=== PATIENT | female | born 1945 | race Caucasian/White ===

== ENCOUNTER → 2017-04-22 | Outpatient (CLI) | payer OTHER ==
[~2017-04-22] MED LIST: CHOL500023 PO; CYAN100023 PO
[2017-04-22 08:44] LABS: Basophils # (auto) 0 uL; Basophils % (auto) 0.6 % (0.0-2.0); CONDITION Y; Eosinophils # (auto) 0.1 uL; Eosinophils % (auto) 1.6 % (0.0-7.0); Hematocrit 41.5 % (36.0-46.0); Hemoglobin 14.1 g/dL (12.2-16.2); Lymphocytes # (auto) 2.4 uL; Lymphocytes % (auto) 39.3 % (10.0-50.0); Mean Corpuscular Hemoglobin 32.4 pg (28.0-32.0); Mean Corpuscular Hgb Conc. 34.1 g/dL (32.0-36.0); Mean Corpuscular Volume 94.9 fL (80.0-100.0); Mean Platelet Volume 8.6 fL (7.4-10.4); Monocytes # (auto) 0.6 uL; Neutrophils # (auto) 2.9 uL; Neutrophils % (auto) 48.5 % (37.0-80.0); Platelet Count (auto) 191 10^3/uL (140-450); Red Cell Distribution Width 13.8 % (11.6-16.0); White Blood Cell 6.1 10^3/uL (4.4-10.8)
[2017-04-22 08:48] LABS: Urine Bilirubin Negative (Negative); Urine Blood Negative /uL (Negative); Urine Color Yellow (Yellow); Urine Glucose Normal (Normal); Urine Ketone Negative (Negative); Urine Nitrite Negative (Negative); Urine RBC 1 /hpf (0 - 4); Urine Squamous Epithelial Cell FEW /hpf (<5); Urine Urobilinogen Normal (Negative)
[2017-04-22 09:10] LABS: Albumin 3.2 g/dL (3.4-5.0); BUN/Creatinine Ratio 20.5; Bilirubin, Total 0.6 mg/dL (0.2-1.0); Calcium 9.1 mg/dL (8.5-10.1); Potassium 4.4 mmol/L (3.5-5.1); Total Protein 6.7 g/dL (6.4-8.2)
== END | disposition home or self-care (01) ==
LOC: LAB 07:55
PROVIDERS: ATTEND Internal Medicine
DX: Z00.00 Encounter for general adult medical examination without abnormal findings (principal); I10 Essential (primary) hypertension; E78.2 Mixed hyperlipidemia; E55.9 Vitamin D deficiency, unspecified
CPT/HCPCS: 36415; 80053; 80061; 81001; 82306; 85025

== ENCOUNTER 2017-10-06 08:04 | Day surgery (SDC) | payer OTHER ==
[2017-10-04 16:41] LABS: Basophils # (auto) 0.1 uL; Basophils % (auto) 0.9 % (0.0-2.0); Eosinophils # (auto) 0.1 uL; Eosinophils % (auto) 1.1 % (0.0-7.0); Hemoglobin 14.3 g/dL (12.2-16.2); Lymphocytes # (auto) 2.7 uL; Lymphocytes % (auto) 34.4 % (10.0-50.0); Mean Corpuscular Hemoglobin 33.8 pg (28.0-32.0); Mean Corpuscular Hgb Conc. 34.2 g/dL (32.0-36.0); Mean Corpuscular Volume 98.9 fL (80.0-100.0); Monocytes # (auto) 0.6 uL; Monocytes % (auto) 8.2 % (0.0-12.0); Neutrophils # (auto) 4.3 uL; Neutrophils % (auto) 55.4 % (37.0-80.0); Nucleated Red Blood Cells % 0.1 %; Platelet Count (auto) 184 10^3/uL (140-450); Red Blood Cells 4.24 10^6/uL (4.0-5.20); Red Cell Distribution Width 13.3 % (11.8-14.3); White Blood Cell 7.8 10^3/uL (4.4-10.8)
[2017-10-04 16:58] LABS: Albumin 3.4 g/dL (3.4-5.0); Calcium 9.5 mg/dL (8.5-10.1); Potassium 4.2 mmol/L (3.5-5.1)
[2017-10-04 17:00] LABS: BUN/Creatinine Ratio 24.4
[2017-10-04 17:03] LABS: Bilirubin, Total 0.3 mg/dL (0.2-1.0); Total Protein 7.3 g/dL (6.4-8.2)
[2017-10-04 17:07] LABS: Urine Bacteria FEW /hpf (None Seen); Urine Blood Negative /uL (Negative); Urine Mucus FEW (None Seen); Urine Specific Gravity 1.024 (1.001-1.035); Urine WBC 14 /hpf (0 - 5)
[2017-10-04 17:31] LABS: INR 0.95 (0.9-1.15); Partial Thromboplastin Time 24.4 sec (22.64-33.71); Prothrombin Time 10.4 sec (9.37-12.3)
[~2017-10-06] VITALS: Ht 165.1 cm; Wt 114.8 kg
[2017-10-06] MEDS ORDERED: LEVOFLOXACIN 500MG 100 ML IV ONE (09:58)
[2017-10-06] MEDS ORDERED: fentaNYL CITRATE 100 MCG/2 ML VL ONE (11:43)
[2017-10-06] MEDS ORDERED: MIDAZOLAM HCL 1MG/1ML-2 ML VIAL ONE (11:43)
[2017-10-06] MEDS ORDERED: BUPIVACAINE W/ EPINEPH 0.25% INJ 50ML MDV ONE (11:44)
[2017-10-06] MEDS ORDERED: BUPIVACAINE W/ EPINEPH 0.5% MPF 30ML VIAL IJ ONE (11:44)
[2017-10-06] MEDS ORDERED: DEXAMETHASONE SOD PHOS 10MG/1ML VIAL INJ ONE (12:07)
[2017-10-06] MEDS ORDERED: KETOROLAC TROMETH 30 MG/ML 1ML VIAL ONE (12:07)
[2017-10-06] MEDS ORDERED: PROPOFOL 10 MG/ML 20 ML IV ONE (12:07)
[2017-10-06 13:06] VITALS: BP 127/71
== END 2017-10-06 13:21 | disposition home or self-care (01) ==
LOC: SUR 08:04
PROVIDERS: ATTEND Surgery
DX: D17.21 Benign lipomatous neoplasm of skin and subcutaneous tissue of right arm (principal); I10 Essential (primary) hypertension; E66.01 Morbid (severe) obesity due to excess calories; Z68.41 Body mass index [BMI] 40.0-44.9, adult; Z90.710 Acquired absence of both cervix and uterus; Z87.891 Personal history of nicotine dependence; Z88.8 Allergy status to other drugs, medicaments and biological substances; Z91.018 Allergy to other foods; Z91.040 Latex allergy status; Z88.0 Allergy status to penicillin
CPT/HCPCS: 24076; 36415; 80053; 81001; 85025; 85610; 85730; 88304; J1100; J1885; J1956; J2250; J2704; J3010; Q4131

== ENCOUNTER 2022-04-09 10:23 | Day surgery (SDC) | payer OTHER ==
[2022-04-07 12:07] LABS: Basophils # (auto) 0.1 10 ^3/uL (0-0.2); Eosinophils # (auto) 0.1 10 ^3/uL (0-0.8); Lymphocytes # (auto) 2.7 10 ^3/uL (0.4-5.4); Monocytes # (auto) 0.5 10 ^3/uL (0-1.3); Nucleated Red Blood Cells % 0.1 %; Red Cell Distribution Width 12.9 % (11.8-14.3)
[2022-04-07 12:08] LABS: Basophils % (auto) 1.4 % (0.0-2.0); Eosinophils % (auto) 0.9 % (0.0-7.0); Hematocrit 42.6 % (36.0-46.0); Lymphocytes % (auto) 38.4 % (10.0-50.0); Mean Corpuscular Hemoglobin 34.2 pg (28.0-32.0); Mean Corpuscular Hgb Conc. 35.2 g/dL (32.0-36.0); Mean Corpuscular Volume 97.3 fL (80.0-100.0); Monocytes % (auto) 7.2 % (0.0-12.0); Neutrophils # (auto) 3.7 10 ^3/uL (1.6-8.6); Neutrophils % (auto) 52.1 % (37.0-80.0); Red Blood Cells 4.38 10^6/uL (4.0-5.20)
[2022-04-07 12:18] LABS: INR 1.06 (0.9-1.15); Partial Thromboplastin Time 26.5 sec (23.6-33.0)
[2022-04-07 12:36] LABS: Albumin 3.4 g/dL (3.4-5.0); Calcium 9.6 mg/dL (8.5-10.1); Potassium 4.2 mmol/L (3.5-5.1)
[2022-04-07 12:39] LABS: BUN/Creatinine Ratio 15.8; Bilirubin, Total 0.7 mg/dL (0.2-1.0); Total Protein 7.4 g/dL (6.4-8.2)
[~2022-04-09] VITALS: Ht 165.1 cm; Wt 113.4 kg
[2022-04-09] MEDS ORDERED: diphenhdrAMINE HCL 50 MG/1 ML VL ONE (10:46)
[2022-04-09] MEDS: fentaNYL CITRATE 100 MCG/2 ML VL ONE ×3 (11:16→11:25)
[2022-04-09] MEDS: MIDAZOLAM HCL 5 MG/ML-1ML VIAL ONE ×3 (11:16→11:25)
[2022-04-09 12:15] VITALS: BP 138/73
== END 2022-04-09 12:35 | disposition home or self-care (01) ==
LOC: GI 10:23
PROVIDERS: ATTEND Internal Medicine Gastroenterology
DX: R19.5 Other fecal abnormalities (principal); K57.30 Diverticulosis of large intestine without perforation or abscess without bleeding; K64.8 Other hemorrhoids; K63.89 Other specified diseases of intestine; Z90.710 Acquired absence of both cervix and uterus; Z98.890 Other specified postprocedural states; Z79.899 Other long term (current) drug therapy; Z20.822 Contact with and (suspected) exposure to COVID-19; Z87.891 Personal history of nicotine dependence; Z80.3 Family history of malignant neoplasm of breast; Z82.49 Family history of ischemic heart disease and other diseases of the circulatory system; Z80.8 Family history of malignant neoplasm of other organs or systems
CPT/HCPCS: 36415; 45378; 80053; 85025; 85610; 85730; J1200; J2250; J3010; J7030; U0003; 99152

== ENCOUNTER 2023-01-06 09:23 | Inpatient (IN) | payer OTHER ==
[2023-01-04 12:59] LABS: Basophils # (auto) 0 10 ^3/uL (0-0.2); Basophils % (auto) 0.5 % (0.0-2.0); Eosinophils # (auto) 0.1 10 ^3/uL (0-0.8); Eosinophils % (auto) 1.1 % (0.0-7.0); Hematocrit 42.1 % (36.0-46.0); Hemoglobin 14.7 g/dL (12.2-16.2); Lymphocytes % (auto) 37.3 % (10.0-50.0); Mean Corpuscular Hemoglobin 33.8 pg (28.0-32.0); Mean Corpuscular Volume 96.5 fL (80.0-100.0); Monocytes # (auto) 0.6 10 ^3/uL (0-1.3); Monocytes % (auto) 7.4 % (0.0-12.0); Neutrophils # (auto) 4.3 10 ^3/uL (1.6-8.6); Neutrophils % (auto) 53.7 % (37.0-80.0); Nucleated Red Blood Cells % 0.1 %; Red Blood Cells 4.36 10^6/uL (4.0-5.20); Red Cell Distribution Width 13.3 % (11.8-14.3); White Blood Cell 8.1 10^3/uL (4.4-10.8)
[2023-01-04 13:10] LABS: Partial Thromboplastin Time 26.8 sec (24.6-33.4)
[2023-01-04 13:12] LABS: Urine Bacteria NONE SEEN /hpf (None Seen); Urine Blood Negative /uL (Negative); Urine Hyaline Cast FEW /lpf (0 - 2); Urine Mucus FEW (None Seen); Urine Specific Gravity 1.024 (1.001-1.035); Urine WBC 33 /hpf (0 - 5)
[2023-01-04 13:35] LABS: Albumin 3.4 g/dL (3.4-5.0); BUN/Creatinine Ratio 22.8; Bilirubin, Total 0.5 mg/dL (0.2-1.0); Calcium 9.6 mg/dL (8.5-10.1); Potassium 4.3 mmol/L (3.5-5.1); Total Protein 7.1 g/dL (6.4-8.2)
[~2023-01-06] VITALS: Ht 160 cm; Wt 106.6 kg
[2023-01-06] MEDS ORDERED: levoFLOXacin 500MG 100 ML IV ONE (09:43)
[2023-01-06] MEDS ORDERED: BUPIVACAINE HCL 0.25% P/F 10 ML VIAL ONE (11:29)
[2023-01-06] MEDS ORDERED: BUPIVACAINE 0.5% P/F INJ 10 ML VIAL ONE (11:29)
[2023-01-06] MEDS ORDERED: BUPIVACAINE 0.25% INJ 50ML VIAL ONE (11:29)
[2023-01-06] MEDS ORDERED: fentaNYL CITRATE 100 MCG/2 ML VL ONE (11:47)
[2023-01-06] MEDS ORDERED: ROCURONIUM 10MG/ML 10ML VIAL IV ONE (11:47)
[2023-01-06] MEDS ORDERED: SUCCINYLCHOLINE CHLORIDE 20 MG/ML 10ML VIAL IV ONE (11:48)
[2023-01-06] MEDS ORDERED: MIDAZOLAM HCL 2MG/2ML 2ml VIAL (1mg/ml) ONE (11:48)
[2023-01-06] MEDS ORDERED: ONDANSETRON HCL 4 MG/2 ML VIAL ONE (11:54)
[2023-01-06] MEDS ORDERED: PROPOFOL 10 MG/ML 20 ML IV ONE (11:54)
[2023-01-06] MEDS ORDERED: LIDOCAINE 2% (LOCAL ANESTH.) PF 5ml SDV ONE (11:54)
[2023-01-06] MEDS ORDERED: HYDROmorphone HCL 2 MG/ML VL/or syr IV PRN ×3 (12:45→13:00)
[2023-01-06] MEDS ORDERED: ONDANSETRON HCL 4 MG/2 ML VIAL IV PRN ×3 (12:45→13:00)
[2023-01-06] MEDS ORDERED: D5W/SOD CHL 0.45%/KCL 20MEQ 1,000 ML IV SCH (13:00)
[2023-01-06] MEDS ORDERED: GLYCOPYRROLATE 0.2 MG/ML 1ML VIAL ONE (13:03)
[2023-01-06] MEDS ORDERED: NEOSTIGMINE 1 MG/ML INJ (10mg/10ML VIAL) ONE (13:03)
[2023-01-06] MEDS ORDERED: HYDROcodone-ACET 5/325MG TAB PO PRN (14:45)
[2023-01-06 17:30] VITALS: BP 136/61
[2023-01-06] MEDS: D5W/SOD CHL 0.45%/KCL 20MEQ 1,000 ML IV SCH (18:38)
[2023-01-06 22:00] VITALS: BP 146/67
[2023-01-07] MEDS: D5W/SOD CHL 0.45%/KCL 20MEQ 1,000 ML IV SCH (04:53)
[2023-01-07 05:00] VITALS: BP 137/60
[2023-01-07 05:44] LABS: Basophils # (auto) 0 10 ^3/uL (0-0.2); Lymphocytes % (auto) 34.7 % (10.0-50.0); Red Cell Distribution Width 13.2 % (11.8-14.3)
[2023-01-07 05:46] LABS: Basophils % (auto) 0.3 % (0.0-2.0); Eosinophils # (auto) 0.1 10 ^3/uL (0-0.8); Eosinophils % (auto) 0.8 % (0.0-7.0); Hematocrit 40.2 % (36.0-46.0); Hemoglobin 14.1 g/dL (12.2-16.2); Lymphocytes # (auto) 2.8 10 ^3/uL (0.4-5.4); Mean Corpuscular Hemoglobin 34.4 pg (28.0-32.0); Mean Corpuscular Volume 98.3 fL (80.0-100.0); Monocytes # (auto) 0.6 10 ^3/uL (0-1.3); Monocytes % (auto) 7.9 % (0.0-12.0); Neutrophils # (auto) 4.5 10 ^3/uL (1.6-8.6); Neutrophils % (auto) 56.3 % (37.0-80.0); Red Blood Cells 4.09 10^6/uL (4.0-5.20)
[2023-01-07 06:03] LABS: Calcium 8.9 mg/dL (8.5-10.1); Potassium 4.5 mmol/L (3.5-5.1)
[2023-01-07 06:10] LABS: Bilirubin, Total 0.8 mg/dL (0.2-1.0); Total Protein 6.4 g/dL (6.4-8.2)
[2023-01-07 08:45] VITALS: BP 130/73
[2023-01-07] MEDS ORDERED: levoFLOXacin 500MG 100 ML IV SCH (10:00)
[2023-01-07] MEDS ORDERED: PANTOPRAZOLE 40 MG/10 ML VIAL INJ IV SCH (10:00)
[2023-01-07] MEDS ORDERED: D5W/SOD CHL 0.45%/KCL 20MEQ 1,000 ML IV SCH (10:45)
[2023-01-07] MEDS ORDERED: LEVO500T31 PO (10:47)
[2023-01-07] MEDS ORDERED: DOCU-94 PO (10:48)
[2023-01-07] MEDS ORDERED: TRAM50TA2 PO (10:48)
[2023-01-07 12:35] VITALS: BP 157/74
== END 2023-01-07 16:08 | disposition home or self-care (01) | DRG 418 ==
LOC: SUR 09:23 → OVERFLOW 14:42 → EAST 17:10
PROVIDERS: ADMIT Internal Medicine; ATTEND Internal Medicine
PROC: 0FT44ZZ Resection of Gallbladder, Percutaneous Endoscopic Approach (ICD-10-PCS; principal; 2023-01-06 11:54)
DX: K80.10 Calculus of gallbladder with chronic cholecystitis without obstruction (principal); Z68.41 Body mass index [BMI] 40.0-44.9, adult; I10 Essential (primary) hypertension; E66.9 Obesity, unspecified; Z20.822 Contact with and (suspected) exposure to COVID-19; Z88.0 Allergy status to penicillin
CPT/HCPCS: 36415; 80053; 81001; 85025; 85610; 85730; 86850; 86900; 86901; C9113; G0378; J0330; J1956; J2001; J2250; J2405; J2704; J3490